=== PATIENT | male | born 1960 | race Two or more races ===

== ENCOUNTER 2018-12-15 09:23 | Inpatient (IN) | payer OTHER ==
[~2018-12-15] VITALS: Ht 180.3 cm; Wt 128.8 kg
[2018-12-15 10:15] LABS: Basophils # (auto) 0 uL; Basophils % (auto) 0.5 % (0.0-2.0); Eosinophils # (auto) 0 uL; Eosinophils % (auto) 0.5 % (0.0-7.0); Hematocrit 40.8 % (41.0-53.0); Hemoglobin 14.9 g/dL (13.5-17.5); Lymphocytes % (auto) 11.1 % (10.0-50.0); Mean Corpuscular Hgb Conc. 36.5 g/dL (32.0-36.0); Mean Corpuscular Volume 90.4 fL (80.0-100.0); Monocytes # (auto) 0.6 uL; Monocytes % (auto) 6.7 % (0.0-12.0); Neutrophils # (auto) 7.4 uL; Neutrophils % (auto) 81.2 % (37.0-80.0); Platelet Count (auto) 195 10^3/uL (140-450); Red Blood Cells 4.52 10^6/uL (4.5-5.90); Red Cell Distribution Width 12.8 % (11.8-14.3); White Blood Cell 9.2 10^3/uL (4.4-10.8)
[2018-12-15 10:31] LABS: Albumin 3.2 g/dL (3.4-5.0); BUN/Creatinine Ratio 11.5; Calcium 8.3 mg/dL (8.5-10.1); Potassium 3.5 mmol/L (3.5-5.1)
[2018-12-15 10:34] LABS: Bilirubin, Total 1.1 mg/dL (0.2-1.0); Total Protein 7.2 g/dL (6.4-8.2)
[2018-12-15] MEDS ORDERED: ONDANSETRON HCL 4 MG/2 ML VIAL IV ONE (10:45)
[2018-12-15] MEDS ORDERED: MORPHINE SULFATE 4 MG/ML SYR/VIAL IV ONE (10:45)
[2018-12-15] MEDS ORDERED: METF-370 PO (10:59)
[2018-12-15] MEDS ORDERED: PANT40TA2 PO (10:59)
[2018-12-15] MEDS ORDERED: FURO20TA3 PO (10:59)
[2018-12-15] MEDS ORDERED: AMLO5TAB15 PO (10:59)
[2018-12-15] MEDS ORDERED: BENA10TA9 PO (10:59)
[2018-12-15] MEDS ORDERED: SILD50TA42 PO (10:59)
[2018-12-15] MEDS ORDERED: cefTRIAXone 1GM/50ML D5W 50 ML IV ONE (11:00)
[2018-12-15] MEDS ORDERED: metroNIDAZOLE 500MG/100ML 100 ML IV ONE (11:00)
[2018-12-15 14:31] LABS: Urine WBC None Seen /hpf (0 - 3)
[2018-12-15 14:45] LABS: Urine Bacteria NONE SEEN /hpf (None Seen); Urine Blood Negative /uL (Negative); Urine Specific Gravity 1.024 (1.001-1.035)
[2018-12-15] MEDS ORDERED: HYDROcodone-ACET 5/325MG TAB PO PRN (15:00)
[2018-12-15] MEDS ORDERED: MORPHINE SULF INJ 2 MG/ML SYRINGE 1ML IV PRN (15:00)
[2018-12-15] MEDS ORDERED: ONDANSETRON HCL 4 MG/2 ML VIAL IV PRN (15:00)
[2018-12-15] MEDS ORDERED: DEXTROSE (50%) 50ML SYRG IV PRN (15:00)
[2018-12-15] MEDS: SODIUM CHLORIDE 0.9% 1,000 ML IV SCH (15:17)
[2018-12-15 17:00] VITALS: BP 123/83
[2018-12-15] MEDS: InsuLIN REG 1unit/0.01ml Soln (100units/ml) SC SCH (18:00)
[2018-12-15] MEDS: ACCU-CHEK COMFORT CURVE STRIP VI SCH (18:17)
--- NOTE | 2018-12-15 18:59 | NUR ---
MS admit from ER JOSH DYE JR admitted to tele/MS. Patient oriented to MIKE SEPULVEDA RN primary RN, unit, room, bed, and unit policies regarding patient care and visiting hours. Patient weighed by bedscale and encouraged to call if they need something. All questions and concerns addressed, patient verbalized understanding. Note: NO REPORT FROM ED RECEIVED.
--- NOTE | 2018-12-15 19:26 | NUR ---
Opening Shift Note Assumed care of patient, awake and alert x 4. No S/S of distress/SOB. Bed is in lowest position and locked. Call light within reach. Board updated. NS infusing st 100 mls/hr. Instructed on POC and to call for assist PRN, will continue to monitor for changes Q1hr and PRN.
[2018-12-15] MEDS: metroNIDAZOLE 500MG/100ML 100 ML IV SCH (21:31)
[2018-12-15 22:00] VITALS: BP 126/67
[2018-12-16] MEDS: ACCU-CHEK COMFORT CURVE STRIP VI SCH ×3 (00:39→11:51)
[2018-12-16] MEDS: SODIUM CHLORIDE 0.9% 1,000 ML IV SCH (01:01)
[2018-12-16 05:00] VITALS: BP 133/85
[2018-12-16] MEDS: metroNIDAZOLE 500MG/100ML 100 ML IV SCH (05:27)
[2018-12-16] MEDS: InsuLIN REG 1unit/0.01ml Soln (100units/ml) SC SCH ×3 (05:27→11:51)
--- NOTE | 2018-12-16 05:42 | NUR ---
Patient refused regular insulin for blood glucose level of 160 mg/dl. Patient admitted he had just finished a cranberry juice and is concerned his blood glucose will plummet with the insulin.
[2018-12-16 06:04] LABS: Basophils # (auto) 0 uL; Basophils % (auto) 0.2 % (0.0-2.0); Eosinophils # (auto) 0.1 uL; Hematocrit 41.9 % (41.0-53.0); Hemoglobin 14.6 g/dL (13.5-17.5); Lymphocytes # (auto) 1.3 uL; Lymphocytes % (auto) 18.4 % (10.0-50.0); Mean Corpuscular Hemoglobin 32.5 pg (28.0-32.0); Mean Corpuscular Hgb Conc. 34.8 g/dL (32.0-36.0); Mean Corpuscular Volume 93.3 fL (80.0-100.0); Monocytes # (auto) 0.5 uL; Neutrophils # (auto) 4.9 uL; Neutrophils % (auto) 71.4 % (37.0-80.0); Nucleated Red Blood Cells % 0.1 %; Platelet Count (auto) 186 10^3/uL (140-450); Red Blood Cells 4.49 10^6/uL (4.5-5.90); Red Cell Distribution Width 12.6 % (11.8-14.3); White Blood Cell 6.8 10^3/uL (4.4-10.8)
[2018-12-16 06:34] LABS: Potassium 3.7 mmol/L (3.5-5.1)
[2018-12-16 06:41] LABS: BUN/Creatinine Ratio 7.8; Calcium 8.3 mg/dL (8.5-10.1)
[2018-12-16 09:00] VITALS: BP 139/78
[2018-12-16] MEDS ORDERED: LEVOFLOXACIN 500MG 100 ML IV SCH (10:00)
--- NOTE | 2018-12-16 11:53 | NUR ---
Discharge instructions given as ordered. Encourage to follow up with PMD as instructed. All questions and concerns addressed. Patient verbalized understanding. Medication reconciliation form completed and copy given to patient. IV removed with catheter intact, pressure dressing applied. No distress noted at time of departure. PATIENT REFUSED WHEELCHAIR AND PREFERS TO LEAVE UNIT BY HIMSELF.
== END 2018-12-16 12:00 | disposition home or self-care (01) | DRG 392 ==
LOC: ER 09:23 → OVERFLOW 09:24 → CENTRAL 15:54
PROVIDERS: ADMIT Internal Medicine; ATTEND Internal Medicine
DX: K57.32 Diverticulitis of large intestine without perforation or abscess without bleeding (principal); E11.9 Type 2 diabetes mellitus without complications; E66.01 Morbid (severe) obesity due to excess calories; I10 Essential (primary) hypertension; K59.00 Constipation, unspecified; Z82.49 Family history of ischemic heart disease and other diseases of the circulatory system; Z68.39 Body mass index [BMI] 39.0-39.9, adult
CPT/HCPCS: 36415; 74176; 80048; 80053; 81001; 82962; 83036; 83605; 83690; 85025; 87040; 93005; 94761; 96365; 96367; G0378; J0696; J1956; J3490